=== PATIENT | male | born 1955 | race African-American/Black ===

== ENCOUNTER 2023-02-13 11:44 | Emergency (ER) | payer MEDICARE ==
[~2023-02-13] VITALS: Ht 172.7 cm; Wt 150.0 kg
[2023-02-13] VITALS (8 sets, daily range): BP systolic 123–135; BP diastolic 69–89
== END 2023-02-13 15:20 | disposition home or self-care (01) ==
LOC: ED 11:44
DX: R55 Syncope and collapse (principal); S00.81XA Abrasion of other part of head, initial encounter; W18.39XA Other fall on same level, initial encounter; Y92.22 Religious institution as the place of occurrence of the external cause; F17.210 Nicotine dependence, cigarettes, uncomplicated